=== PATIENT | male | born 1980 | race Two or more races ===

== ENCOUNTER 2016-09-03 11:24 | Observation (INO) | payer OTHER ==
[~2016-09-03 11:24] MED LIST: DEXAMETHASONE SOD PHOSPHATE INJ 4 MG/1 ML VIAL ONE; GLYCOPYRROLATE INJ 0.4 MG/2 ML VIAL ONE; LIDOCAINE 2% INJ-PF (20 MG/ML) 10 ML AMPUL ONE; NEOSTIGMINE METHYLSULFATE 10 MG/10 ML VIAL ONE; ONDANSETRON HCL INJ/PF 4 MG/2 ML SDV ONE; ROCURONIUM BROMIDE INJ 50 MG/5 ML VIAL IV ONE; SUCCINYLCHOLINE CHLORIDE INJ 200 MG/10 ML VIAL ONE
[2016-09-03] MEDS ORDERED: LIDOCAINE 2% VISCOUS SOLN 20 ML UDCUP PO ONE (11:46)
[2016-09-03] MEDS ORDERED: MAG HYDROX/AL HYDROX/SIMETH SUSP 30 ML UDCUP PO ONE (11:46)
--- NOTE | 2016-09-03 11:48 | ER Document Report ---
ED Medical Screen (RME) - General Chief Complaint: Epigastric Pain Stated Complaint: ACID REFLUX PAIN Time Seen by Provider: 09/03/16 11:41 Mode of Arrival: Ambulatory Information source: Patient Notes: This 36-year-old male patient with chronic GERD reports eating sausage pizza yesterday evening. He later had severe epigastric discomfort about 3 AM. He took Pepto-Bismol which usually works, also took Prilosec, and Gaviscon. He has had no relief from his discomfort. Brief exam shows very tender in epigastrium and some right upper quadrant tenderness. We will check LFTs and pancreatic enzymes, give a GI cocktail, and get a gallbladder ultrasound. I have greeted and performed a rapid initial assessment of this patient. A comprehensive ED assessment and evaluation of the patient, analysis of test results and completion of the medical decision making process will be conducted by additional ED providers. TRAVEL OUTSIDE OF THE [place] IN LAST 30 DAYS: No - Related Data Allergies/Adverse Reactions: No Known Allergies Allergy (Verified 09/03/16 11:32) Past Medical History - Social History Chew tobacco use (# tins/day): No Frequency of alcohol use: Rare Drug Abuse: None Renal/ Medical History: Denies: Hx Peritoneal Dialysis GI Medical History: Reports: Hx Gastroesophageal Reflux Disease Surgical Hx: Negative - Immunizations Hx Diphtheria, Pertussis, Tetanus Vaccination: Yes Physical Exam - Vital signs Vitals: Temp Pulse Resp BP Pulse Ox 98.2 F 63 18 184/104 H 98 09/03/16 11:25 09/03/16 11:25 09/03/16 11:25 09/03/16 11:25 09/03/16 11:25 Course - Vital Signs Vital signs: Temp Pulse Resp BP Pulse Ox 98.2 F 63 18 184/104 H 98 09/03/16 11:25 09/03/16 11:25 09/03/16 11:25 09/03/16 11:25 09/03/16 11:25
[2016-09-03] MEDS ORDERED: ONDANSETRON HCL INJ/PF 4 MG/2 ML SDV IV ONE (12:14)
[2016-09-03] MEDS ORDERED: MORPHINE SULFATE 10 MG/ML INJ IV ONE (12:14)
[2016-09-03] MEDS ORDERED: NORMAL SALINE 1000 ML 1,000 ML IV ONE ×2 (12:14→14:37)
[2016-09-03] MEDS ORDERED: FAMOTIDINE INJ/PF 20 MG/2 ML SDV IV ONE (12:15)
[2016-09-03 12:50] LABS: ABSOLUTE LYMPHOCYTES (AUTO) 1.5 10^3/uL (0.5-4.7); ABSOLUTE MONOCYTES (AUTO) 0.4 10^3/uL (0.1-1.4); BASOPHILS % (AUTO) 0.4 % (0-2); EOSINOPHILS % (AUTO) 0.3 % (0-6); HEMATOCRIT 45.6 % (37.9-51.0); HEMOGLOBIN 14.2 g/dL (13.5-17.0); LYMPHOCYTES % (AUTO) 17.2 % (13-45); MEAN CORPUSCULAR HEMOGLOBIN 22.7 pg (27.0-33.4); MEAN CORPUSCULAR VOLUME 73 fl (80-97); MONOCYTES % (AUTO) 4.1 % (3-13); RED BLOOD COUNT 6.23 10^6/uL (4.35-5.55); RED CELL DISTRIBUTION WIDTH 14.1 % (11.5-14.0)
[2016-09-03 13:01] LABS: ALANINE AMINOTRANSFERASE 78 U/L (21-72); ALBUMIN 4.6 g/dL (3.5-5.0); ALKALINE PHOSPHATASE 75 U/L (38-126); ANION GAP 19 (5-19); ASPARTATE AMINO TRANSFERASE 44 U/L (17-59); BILIRUBIN,DIRECT 0.3 mg/dL (0.0-0.4); BILIRUBIN,TOTAL 0.4 mg/dL (0.2-1.3); BLOOD UREA NITROGEN 10 mg/dL (7-20); CARBON DIOXIDE 23 mmol/L (22-30); CHLORIDE 100 mmol/L (98-107); CREATININE RESULT 0.76 mg/dL (0.52-1.25); GLUCOSE 141 mg/dL (75-110); LIPASE 61.1 U/L (23-300); SODIUM 142.4 mmol/L (137-145); TOTAL PROTEIN 7.9 g/dL (6.3-8.2)
--- NOTE | 2016-09-03 13:58 | RADIOLOGY REPORT (SQ) ---
EXAM DESCRIPTION: U/S ABDOMEN LIMITED W/O DOP COMPLETED DATE/TIME: 09/03/2016 1:37 pm REASON FOR STUDY: RUQ and epigastric pain COMPARISON: None. TECHNIQUE: Dynamic and static grayscale images acquired of the right upper quadrant and recorded on PACS. Additional selected color Doppler and spectral images recorded. LIMITATIONS: Study limited due to acoustical interference from fat or from air in the bowel. FINDINGS: PANCREAS: Parts or all of the pancreas poorly seen secondary to acoustical interference fr om fat or from air in the bowel. LIVER: Echotexture is coarse with increased echogenicity consistent with fatty infiltration. No mass es. LIVER VASCULATURE: Normal directional flow of the main portal vein and hepatic veins. GALLBLADDER: Multiple gallstones. Mild gallbladder wall thickening. Small amount of pericholecystic fluid. ULTRASOUND-DETECTED SONI'S SIGN: Negative. INTRAHEPATIC DUCTS AND COMMON DUCT: No significant intrahepatic biliary dilation. Unable to visualiz e the extrahepatic bile ducts due to overlying bowel gas. INFERIOR VENA CAVA: Normal flow. AORTA: No aneurysm. RIGHT KIDNEY: Normal size. Normal echogenicity. No solid or suspicious masses. No hydronephros is. No calcifications. PERITONEAL CAVITY AND RIGHT PLEURAL SPACE: No ascites or effusions. OTHER: No other significant finding. IMPRESSION: 1. MULTIPLE GALLSTONES. MILD GALLBLADDER WALL THICKENING WITH SMALL AMOUNT OF PERICHOLECYSTIC FLUID. UNABLE TO VISUALIZE THE EXTRAHEPATIC BILE DUCTS BUT NO GROSS EVIDENCE OF BILIARY DILATION. 2. FATTY INFILTRATION OF THE LIVER. TECHNICAL DOCUMENTATION: JOB ID: [id number] [employer]- All Rights Reserved
[2016-09-03] MEDS ORDERED: AMPICILLIN SOD/SULBACTAM 3 GM VIAL IV ONE (14:37)
--- NOTE | 2016-09-03 14:38 | ER Document Report ---
ED General - General Chief Complaint: Epigastric Pain Stated Complaint: ACID REFLUX PAIN Time Seen by Provider: 09/03/16 11:41 Mode of Arrival: Ambulatory TRAVEL OUTSIDE OF THE [place] IN LAST 30 DAYS: No - HPI Patient complains to provider of: History right upper quadrant pain Notes: Patient coming in for acid reflux epigastric pain or upper quadrant pain. Patient states pain started after eating pizza the night prior. Patient states last meal glucose this morning when eating breakfast. Patient has fever chills nausea vomiting. Patient denies any other medical past medical history denies any recent travel denies any recent antibiotics. - Related Data Allergies/Adverse Reactions: No Known Allergies Allergy (Verified 09/03/16 11:32) Past Medical History - General Information source: Patient - Social History Smoking Status: Never Smoker Chew tobacco use (# tins/day): No Frequency of alcohol use: Rare Drug Abuse: None Family History: Reviewed & Not Pertinent Patient has suicidal ideation: No Patient has homicidal ideation: No Renal/ Medical History: Denies: Hx Peritoneal Dialysis GI Medical History: Reports: Hx Gastroesophageal Reflux Disease Surgical Hx: Negative - Immunizations Hx Diphtheria, Pertussis, Tetanus Vaccination: Yes Review of Systems - Review of Systems Constitutional: No symptoms reported EENT: No symptoms reported Cardiovascular: No symptoms reported Respiratory: No symptoms reported Gastrointestinal: Abdominal pain Genitourinary: No symptoms reported Male Genitourinary: No symptoms reported Musculoskeletal: No symptoms reported Skin: No symptoms reported Hematologic/Lymphatic: No symptoms reported Neurological/Psychological: No symptoms reported -: Yes All other systems reviewed and negative Physical Exam - Vital signs Vitals: Temp Pulse Resp BP Pulse Ox 98.2 F 63 18 184/104 H 98 09/03/16 11:25 09/03/16 11:25 09/03/16 11:25 09/03/16 11:25 09/03/16 11:25 Interpretation: Normal - General General appearance: Appears well, Alert - HEENT Head: Normocephalic, Atraumatic Eyes: Normal Pupils: PERRL - Respiratory Respiratory status: No respiratory distress Chest status: Nontender Breath sounds: Normal Chest palpation: Normal - Cardiovascular Rhythm: Regular Heart sounds: Normal auscultation Murmur: No - Abdominal Inspection: Normal Distension: No distension Bowel sounds: Normal Tenderness: Tender, Alvarado's sign, Guarding. No: McBurney's point, Rebound Organomegaly: No organomegaly - Back Back: Normal, Nontender - Extremities General upper extremity: Normal inspection, Nontender, Normal color, Normal ROM , Normal temperature General lower extremity: Normal inspection, Nontender, Normal color, Normal ROM , Normal temperature, Normal weight bearing. No: Brooks's sign - Neurological Neuro grossly intact: Yes Cognition: Normal Orientation: AAOx4 Thornton Coma Scale Eye Opening: Spontaneous Thornton Coma Scale Verbal: Oriented Josafat Coma Scale Motor: Obeys Commands Thornton Coma Scale Total: 15 Speech: Normal Motor strength normal: LUE, RUE, LLE, RLE Sensory: Normal - Psychological Associated symptoms: Normal affect, Normal mood - Skin Skin Temperature: Warm Skin Moisture: Dry Skin Color: Normal Course - Re-evaluation Re-evalutation: 09/03/16 16:27 Patient's ultrasound showed gallstones with pericholecystic fluid with gallbladder wall thickening more consistent with cholecystitis. Patient was remained n.p.o. 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
[2016-09-03] MEDS ORDERED: BUPIVACAINE HCL 0.25 % INJ/PF (2.5 MG/1 ML) 30 ML VIAL ONE (15:02)
[2016-09-03 15:07] LABS: APPEARANCE,URINE CLEAR; BILIRUBIN,URINE NEGATIVE (NEGATIVE); GLUCOSE, URINE NEGATIVE (NEGATIVE); KETONES,URINE NEGATIVE (NEGATIVE); LEUKOCYTE ESTERASE,URINE NEGATIVE (NEGATIVE); NITRITE,URINE NEGATIVE (NEGATIVE); PROTEIN,URINE NEGATIVE (NEGATIVE); UROBILINOGEN,URINE NEGATIVE mg/dL (<2.0)
[2016-09-03] MEDS ORDERED: FENTANYL CITRATE INJ/PF 100 MCG/2 ML AMPUL ONE ×2 (15:08)
[2016-09-03] MEDS ORDERED: HYDROMORPHONE HCL INJ/PF 2 MG/ML AMPULE ONE (15:08)
[2016-09-03] MEDS ORDERED: MIDAZOLAM 2 MG/2 ML INJ ONE (15:09)
[2016-09-03] MEDS ORDERED: ACETAMINOPHEN 100 ML IV ONE (15:09)
[2016-09-03] MEDS ORDERED: RINGERS SOLUTION,LACTATED 1,000 ML IV ONE (15:09)
[2016-09-03] MEDS ORDERED: PROPOFOL INJ 200 MG/20 ML VIAL IV ONE (15:09)
--- NOTE | 2016-09-03 15:17 | PDOC H&P ---
History of Present Illness Admission Date/PCP: 09/03/16 14:44 History of Present Illness: KENIA LIEBERMAN is a 36 year old male presents emergency department complaining of acute onset abdominal pain after eating last night. This is associated with anorexia and nausea but no vomiting. Last bowel movement was earlier this morning, normal. Patient seen in the emergency department where he was found to have right upper quadrant tenderness. Gallbladder ultrasonography revealed cholelithiasis, thickened gallbladder wall, pericholecystic fluid. Patient was advised to see surgery, who recommended admission and definitive surgical management According patient for years she has had pains similar to the presenting complaint today, but less intense, and attributed this to reflux disease. Is taken proton pump inhibitors in the past as well as H2 blockers. He denies history of trauma, previous gastrointestinal problems, family history of gallbladder disease. Past Medical History Cardiac Medical History: Reports: None Pulmonary Medical History: Reports: None EENT Medical History: Reports: None Neurological Medical History: Reports: None Endocrine Medical History: Reports: None Renal/ Medical History: Reports: None Malignancy Medical History: Reports: None GI Medical History: Reports: Gastroesophageal Reflux Disease Skin Medical History: Reports: None Traumatic Medical History: Reports: None Hematology: Reports: None Past Surgical History Past Surgical History: Reports: None Social History Smoking Status: Never Smoker Frequency of Alcohol Use: None - Advance Directive Resuscitation Status: Full Code Family History Parental Family History Reviewed: Yes Children Family History Reviewed: Yes Sibling(s) Family History Reviewed.: Yes Medication/Allergy Allergies/Adverse Reactions: No Known Allergies Allergy (Verified 09/03/16 11:32) Review of Systems Constitutional: ABSENT: chills, fever(s), headache(s), weight gain, weight loss Eyes: ABSENT: visual disturbances Ears: ABSENT: hearing changes Respiratory: ABSENT: cough, hemoptysis Gastrointestinal: PRESENT: as per HPI Genitourinary: ABSENT: dysuria, hematuria Musculoskeletal: ABSENT: joint swelling Integumentary: ABSENT: rash, wounds Neurological: ABSENT: abnormal gait, abnormal speech, confusion, dizziness, focal weakness, syncope Hematologic/Lymphatic: ABSENT: easy bleeding, easy bruising Physical Exam Vital Signs: Temp Pulse Resp BP Pulse Ox 98.6 F 88 18 150/99 H 98 09/03/16 14:48 09/03/16 14:48 09/03/16 14:48 09/03/16 14:48 09/03/16 14:48 General appearance: PRESENT: no acute distress Head exam: PRESENT: normocephalic Eye exam: PRESENT: EOMI Ear exam: PRESENT: TM's normal bilaterally Neck exam: PRESENT: full ROM Respiratory exam: PRESENT: chest wall tenderness, clear to auscultation mark Cardiovascular exam: PRESENT: RRR Pulses: PRESENT: normal radial pulses, normal femoral pulses, normal dorsalis pedis pul GI/Abdominal exam: PRESENT: other - No palpable mass appreciated tender right upper quadrant with minimal guarding. No rigidity. Extremities exam: PRESENT: full ROM Musculoskeletal exam: PRESENT: full ROM Neurological exam: PRESENT: alert, awake, oriented to person, oriented to place Psychiatric exam: PRESENT: appropriate affect Skin exam: PRESENT: dry Results Impressions: Abdomen Ultrasound 09/03/16 11:46 IMPRESSION: 1. MULTIPLE GALLSTONES. MILD GALLBLADDER WALL THICKENING WITH SMALL AMOUNT OF PERICHOLECYSTIC FLUID. UNABLE TO VISUALIZE THE EXTRAHEPATIC BILE DUCTS BUT NO GROSS EVIDENCE OF BILIARY DILATION. 2. FATTY INFILTRATION OF THE LIVER. Assessment & Plan - Diagnosis (1) Acute cholecystitis Is this a current diagnosis for this admission?: YesPlan: 1. With cholelithiasis; no evidence of acute biliary duct obstruction. 2. Recommend admission to surgical service, and interval laparoscopic, possible open cholecystectomy. Given his male gender, and acute presentation, he has increased risk perhaps 50% conversion to an open procedure. The risks benefits and alternatives to the planned procedure including bleeding , infection, bile duct injury, need for drain, need for additional surgery were all discussed with the patient. I believe he understands and agrees to proceed. - Time Time Spent: 50 to 70 Minutes Critical Time spent with patient: 15-24 minutes Medications reviewed and adjusted accordingly: Yes Anticipated discharge: Home - Inpatient Certification Based on my medical assessment, after consideration of the patient's comorbidities, presenting symptoms, or acuity I expect that the services needed warrant INPATIENT care.: Yes I certify that my determination is in accordance with my understanding of Medicare's requirements for reasonable and necessary INPATIENT services [42 CFR 412.3e].: Yes Medical Necessity: Need For IV Fluids, Need for Pain Control, Need for IV Antibiotics, Need for Surgery
[2016-09-03 15:47] LABS: PROTHROMBIN TIME 14.3 SEC (11.4-15.4)
[2016-09-03 15:48] LABS: PARTIAL THROMBOPLASTIN TIME 27.7 SEC (23.5-35.8)
[2016-09-03] MEDS ORDERED: BUPIVACAINE HCL 0.25 % INJ/PF (2.5 MG/1 ML) 30 ML VIAL INJ ONE ×4 (16:29→17:16)
[2016-09-03] MEDS ORDERED: MEPERIDINE HCL/PF INJ 25 MG/1 ML DISP.SYRIN IV PRN (17:38)
[2016-09-03] MEDS ORDERED: MORPHINE SULFATE 10 MG/ML INJ IV PRN ×2 (17:38→19:01)
[2016-09-03] MEDS ORDERED: PROMETHAZINE HCL INJ 25 MG/1 ML VIAL IV PRN (17:38)
[2016-09-03] MEDS ORDERED: DIPHENHYDRAMINE HCL 50 MG/ML VIAL IV PRN (17:38)
[2016-09-03] MEDS ORDERED: FENTANYL CITRATE INJ/PF 100 MCG/2 ML AMPUL IV PRN ×3 (17:38)
[2016-09-03] MEDS ORDERED: DOCUSATE SODIUM 100 MG CAPSULE PO PRN (19:01)
[2016-09-03] MEDS ORDERED: ONDANSETRON HCL INJ/PF 4 MG/2 ML SDV IV PRN (19:01)
[2016-09-03] MEDS ORDERED: OXYCODONE-ACETAMINOPHEN 5-325 MG TABLET PO PRN (19:01)
--- NOTE | 2016-09-03 19:14 | Operative Report ---
Operative Report DATE OF SURGERY: 09/03/16 PREOPERATIVE DIAGNOSIS: Acute cholecystitis with cholelithiasis POSTOPERATIVE DIAGNOSIS: Same OPERATION: 1. Laparoscopic cholecystectomy. 2. Extremely difficult modifier due to acute inflammation, adhesions and additional time to perform operation SURGEON: DEBORAH MCKEON ANESTHESIA: GA TISSUE REMOVED OR ALTERED: one GB with stones COMPLICATIONS: none ESTIMATED BLOOD LOSS: scant INTRAOPERATIVE FINDINGS: see note PROCEDURE: Patient was taken from the preop holding area the main operating where general anesthesia was induced. Arms were abducted, abdomen exposed, and prepped and draped in sterile fashion. Surgical plan and surgical timeout conducted. Instrumentation was set up for laparoscopic cholecystectomy. Because the patient had a small fullness at the umbilicus, we approached the peritoneal cavity through a right upper quadrant stab wound made with a knife, Veress needle inserted into the peritoneal cavity and pneumoperitoneum was established. The Veress needle was removed and a 5 mm ports inserted a 5 mm Scope was inserted. From this view we inserted a subxiphoid, second right subcostal and supraumbilical ports all 5 mm all under direct visualization. The fullness at the umbilicus detected preoperatively was likely due to retroperitoneal fat herniating through the umbilicus. It was small and we elected to leave it as is. Intraperitoneal findings were significant for no visceral injury, and no vascular injury. The gallbladder was markedly distended, acutely inflamed and aspirated of approximately 60 cc of bile with the laparoscopic trocar. Unfortunately this did not decompress the gallbladder sufficiently to create flexibility in the tissues to provide suitable visibility in the dissection from the neck of the gallbladder. Therefore this approach was aborted, we repositioned our graspers, and took the gallbladder down from the fundus. We used primarily hook electrocautery dissection. This was an extremely tedious process because the gallbladder was Biobond is to the inferior surface of the liver. This took approximately 1 hour solid. The reason again being the presence of acute inflammation edema and adhesions. We proceeded methodically with excellent visualization. Bleeding was intermittent coming from the liver edges. This was handled with electrocautery. This also required a lot of manipulation of the gallbladder laterally medially cephalad and caudad while maintaining excellent visualization of our operative field and tissue plane. Eventually we had the gallbladder down towards the neck free from the liver surface. The cystic artery was likely a branch configuration, with both components clipped twice proximally once distally and divided as encountered. We worked in a circumferential fashion taking the fatty tissue from around the neck of the gallbladder until the gallbladder was elegantly dissected all the way to its taper-point of the cystic duct. We placed an Endoloop around the gallbladder side of the cystic duct and clipped the cystic duct proximally with 2 conventional length 5 mm clip distributor publications clips. Photos were taken and the gallbladder was amputated from cystic duct. The gallbladder was placed in Endobag by the patient is a supraumbilical port site after stretching the fascia minimally. Return to peritoneal cavity checked for bleeding and there was some from the liver edge due to superficial surface trauma from the graspers and fan retractor. The bleeding was handled sufficiently with pieces of Surgicel. We irrigated the peritoneal cavity out several times and there was no evidence of mechanical bleeding or bile leak. Our clips were in good position where satisfied we were safe to close Sponge and counts were correct. All ports removed under direct visualization pneumoperitoneum evacuated and wounds closed with 0 Vicryl 3-0 Vicryl benzoin Steri-Strips Again the justification for the extremely difficult modifier was the prolonged time, effort energy tedious focus and concentration required to remove the gallbladder from the liver bed due to acute inflammation adhesions and edema under excellent assistance and excellent visualization by the operating team.
[2016-09-04 07:51] VITALS: BP 137/70
--- NOTE | 2016-09-04 09:28 | DISCHARGE SUMMARY E ---
Discharge Summary NAME: KENIA LIEBERMAN : 1980 AGE: 36Y ADMITTED: 09/03/2016 DISCHARGED: 09/04/2016 ADMITTING DIAGNOSIS: Cholecystitis. DISCHARGE DIAGNOSIS: Cholecystitis. OPERATIVE PROCEDURE: Laparoscopic cholecystectomy done by Dr. Alarcon. DISCHARGE MEDICATIONS: 1. Hydrocodone for the pain. 2. Colace for a stool softener. FOLLOWUP PLAN: Outpatient in 2 weeks. HOSPITAL COURSE: Patient presented to the emergency room with acute abdominal pain, acute cholecystitis. He underwent a laparoscopic cholecystectomy yesterday, uneventful, admitted for postop management. This morning he is feeling comfortable, afebrile, tolerating diet. No nausea. Abdominal examination is soft and nontender. Trocar incisions are clean and healing well. He is ready to be able to go home. Followup plan in the Surgical Clinic in 2 weeks. DICTATING PHYSICIAN: LOREN PINEDA M.D. [id number] PHY#: [id number] ID: [id number] JOB#: [id number] ACCT: [id number] cc:DEBORAH ALARCON M.D., SANKAR M.D. >
== END 2016-09-04 09:37 | disposition home or self-care (01) ==
LOC: ER 11:24 → INTOOBSV 14:44 → EH 14:44 → 4S 20:22
PROVIDERS: ADMIT Surgery; ATTEND Surgery
PROC: 0FN04ZZ Release Liver, Percutaneous Endoscopic Approach (ICD-10-PCS; 2016-09-03)
PROC: 0FT44ZZ Resection of Gallbladder, Percutaneous Endoscopic Approach (ICD-10-PCS; principal; 2016-09-03 16:00)
DX: K80.10 Calculus of gallbladder with chronic cholecystitis without obstruction (principal); K66.0 Peritoneal adhesions (postprocedural) (postinfection); K91.71 Accidental puncture and laceration of a digestive system organ or structure during a digestive system procedure; K21.9 Gastro-esophageal reflux disease without esophagitis; K76.0 Fatty (change of) liver, not elsewhere classified; Z83.79 Family history of other diseases of the digestive system
CPT/HCPCS: 47562; 49999; 99285; 96361; 96375; 96365; 36415; 83690; 85025; 85610; 85730; 80053; 81001; 88304 ×2; 76705; G0378 ×3; J2250; J3490 ×3; J1100; J3010; J0295; J2270; J1170; J0330; J2405; J7030; J2704; S0028; J0131; 790

== ENCOUNTER 2016-09-07 18:11 | Emergency (ER) | payer OTHER ==
--- NOTE | 2016-09-07 21:10 | ER Document Report ---
ED Medical Screen (RME) - General Chief Complaint: Chest Pain Stated Complaint: CHEST PAIN Time Seen by Provider: 09/07/16 21:07 Notes: Patient is a 36-year-old male presents emergency department complaining of chest pain with sudden onset earlier this afternoon. Patient describes it as a pressure in the center of his chest substernal with radiation into his belly with associated nausea. Patient states that the pressure is more noticeable with deep inhalation. Patient is postop day 4 from a laparoscopic cholecystectomy performed by Dr. Alarcon on September 03. Patient denies any fevers , chills, shortness of breath, dyspnea on exertion. Otherwise healthy male. I have greeted and performed a rapid initial assessment of this patient. A comprehensive ED assessment and evaluation of the patient, analysis of test results and completion of the medical decision making process will be conducted by additional ED providers. TRAVEL OUTSIDE OF THE [place] IN LAST 30 DAYS: No - Related Data Allergies/Adverse Reactions: No Known Allergies Allergy (Verified 09/07/16 18:35) Past Medical History Renal/ Medical History: Denies: Hx Peritoneal Dialysis GI Medical History: Reports: Hx Gastroesophageal Reflux Disease - Immunizations Hx Diphtheria, Pertussis, Tetanus Vaccination: Yes Physical Exam - Vital signs Vitals: Temp Pulse Resp BP Pulse Ox 98.1 F 71 16 167/116 H 99 09/07/16 18:35 09/07/16 18:35 09/07/16 18:35 09/07/16 18:35 09/07/16 18:35 - Notes Notes: PHYSICAL EXAM GENERAL: Alert, interacts well. LUNGS: Clear to auscultation bilaterally, no wheezes, rales, or rhonchi. No respiratory distress. HEART: Regular rate and rhythm. No murmurs, gallops, or rubs. EXTREMITIES: Moves all 4 extremities spontaneously. No edema, radial and dorsalis pedis pulses 2/4 bilaterally. No cyanosis. NEUROLOGICAL: Alert and oriented x4. Normal speech. PSYCH: Normal affect, normal mood. SKIN: Warm, dry, normal turgor. Incisions CDI, no evidence of wound dehiscence or infection Course - Vital Signs Vital signs: Temp Pulse Resp BP Pulse Ox 98.1 F 71 16 167/116 H 99 09/07/16 18:35 09/07/16 18:35 09/07/16 18:35 09/07/16 18:35 09/07/16 18:35
[2016-09-07 21:40] LABS: ABSOLUTE BASOPHILS # (AUTO) 0.1 10^3/uL (0.0-0.2); ABSOLUTE EOSINOPHILS # (AUTO) 0.1 10^3/uL (0.0-0.6); ABSOLUTE LYMPHOCYTES (AUTO) 2.9 10^3/uL (0.5-4.7); ABSOLUTE MONOCYTES (AUTO) 0.5 10^3/uL (0.1-1.4); ABSOLUTE NEUT (AUTO) 4.1 10^3/uL (1.7-8.2); BASOPHILS % (AUTO) 0.7 % (0-2); EOSINOPHILS % (AUTO) 1.2 % (0-6); HEMATOCRIT 44.7 % (37.9-51.0); HEMOGLOBIN 14.1 g/dL (13.5-17.0); HGB HCT DIFFERENCE -2.4; LYMPHOCYTES % (AUTO) 38.3 % (13-45); MEAN CORPUSCULAR HEMOGLOBIN 22.9 pg (27.0-33.4); MEAN CORPUSCULAR HGB CONC 31.5 g/dL (32.0-36.0); MEAN CORPUSCULAR VOLUME 73 fl (80-97); MONOCYTES % (AUTO) 6.2 % (3-13); RED BLOOD COUNT 6.15 10^6/uL (4.35-5.55); RED CELL DISTRIBUTION WIDTH 14.1 % (11.5-14.0); SEGMENTED NEUTROPHILS % (AUTO) 53.6 % (42-78); WHITE BLOOD COUNT 7.6 10^3/uL (4.0-10.5)
--- NOTE | 2016-09-07 21:48 | RADIOLOGY REPORT (SQ) ---
EXAM DESCRIPTION: CHEST PA/LAT COMPLETED DATE/TIME: 09/07/2016 9:33 pm REASON FOR STUDY: chest pain COMPARISON: None. EXAM PARAMETERS: NUMBER OF VIEWS: two views TECHNIQUE: Digital Frontal and Lateral radiographic views of the chest acquired. RADIATION DOSE: NA LIMITATIONS: none FINDINGS: LUNGS AND PLEURA: No opacities, masses or pneumothorax. No pleural effusion. MEDIASTINUM AND HILAR STRUCTURES: No masses or contour abnormalities. HEART AND VASCULAR STRUCTURES: Heart normal size. No evidence for failure. BONES: No acute findings. HARDWARE: None in the chest. OTHER: No other significant finding. IMPRESSION: NO SIGNIFICANT RADIOGRAPHIC FINDING IN THE CHEST. TECHNICAL DOCUMENTATION: JOB ID: [id number] [employer]- All Rights Reserved
[2016-09-07 21:54] LABS: ANION GAP 16 (5-19); BLOOD UREA NITROGEN 11 mg/dL (7-20); CALCIUM 10.4 mg/dL (8.4-10.2); CARBON DIOXIDE 30 mmol/L (22-30); CHLORIDE 98 mmol/L (98-107); CREATININE RESULT 0.84 mg/dL (0.52-1.25); GLUCOSE 92 mg/dL (75-110); PARTIAL THROMBOPLASTIN TIME 28.6 SEC (23.5-35.8); PROTHROMBIN TIME 13.7 SEC (11.4-15.4); SODIUM 144.3 mmol/L (137-145)
[2016-09-07 21:57] LABS: D-DIMER 1.68 ug/mL (0.00-0.50)
[2016-09-07] MEDS ORDERED: FAMOTIDINE 20 MG TABLET PO ONE (23:42)
[2016-09-07] MEDS ORDERED: MAG HYDROX/AL HYDROX/SIMETH SUSP 30 ML UDCUP PO ONE (23:42)
--- NOTE | 2016-09-07 23:48 | ER Document Report ---
ED General - General Chief Complaint: Chest Pain Stated Complaint: CHEST PAIN Time Seen by Provider: 09/07/16 21:07 Mode of Arrival: Ambulatory Information source: Patient TRAVEL OUTSIDE OF THE [place] IN LAST 30 DAYS: No - HPI Notes: Patient is a 36-year-old male status post cholecystectomy on 09/03/16 presents emergency department with report that he has had intermittent episodes of upper epigastric to lower chest wall discomfort that have gone on for several years, usually responds to Pepto-Bismol. The patient was seen recently found to have gallstones and had his gallbladder removed, but states he has had the same discomfort today. Patient reports the discomfort was at rest came on about 10 AM in the morning and he felt somewhat nauseated with he but did not vomit. He denies any actual abdominal pain with it but does have belching associated. He reports no cough or congestion or difficulty breathing. He denies any fever or chills. The patient states when he has a pain that seems to be worse with taking a deep breath, but on my questioning he states now the pain seems to be nonpleuritic and almost resolved. No significant back pain. Family history no cardiac disease. social history patient is a non-smoker Patient does report previous history of reflux disease in the past, and he does admit to taking occasional anti-inflammatory medications. - Related Data Allergies/Adverse Reactions: No Known Allergies Allergy (Verified 09/07/16 18:35) Past Medical History - General Information source: Patient - Social History Smoking Status: Never Smoker Chew tobacco use (# tins/day): No Frequency of alcohol use: None Drug Abuse: None Lives with: Family Family History: denies: CAD Patient has suicidal ideation: No Patient has homicidal ideation: No - Past Medical History Cardiac Medical History: Reports: None Denies: Hx Hypercholesterolemia Renal/ Medical History: Denies: Hx Peritoneal Dialysis GI Medical History: Reports: Hx Gastroesophageal Reflux Disease Past Surgical History: Reports: Hx Cholecystectomy - 09/03/2016 - Immunizations Hx Diphtheria, Pertussis, Tetanus Vaccination: Yes Review of Systems - Review of Systems Notes: REVIEW OF SYSTEMS: CONSTITUTIONAL : Denies fever, chills, or sweats. Denies recent illness. EENT: Denies eye, ear, throat, or mouth pain or symptoms. Denies nasal or sinus congestion or discharge. Denies throat, tongue, or mouth swelling or difficulty swallowing. CARDIOVASCULAR: Denies palpitations or racing or irregular heart beat. Denies ankle edema Or leg pain or swelling. RESPIRATORY: Denies cough, cold, or chest congestion. Denies shortness of breath, difficulty breathing, or wheezing. GASTROINTESTINAL: Denies abdominal pain or distention. Denies vomiting, or diarrhea. Denies blood in vomitus, stools, or per rectum. Denies black, tarry stools. Denies constipation. GENITOURINARY: Denies difficulty urinating, painful urination, burning, frequency, blood in urine, or discharge. MUSCULOSKELETAL: Denies back or neck pain or stiffness. Denies joint pain or swelling. SKIN: Denies rash, lesions or sores. HEMATOLOGIC : Denies easy bruising or bleeding. LYMPHATIC: Denies swollen, enlarged glands. NEUROLOGICAL: Denies confusion or altered mental status. Denies passing out or loss of consciousness. Denies dizziness or lightheadedness. Denies headache. Denies weakness or paralysis or loss of use of either side. Denies problems with gait or speech. Denies sensory loss, numbness, or tingling. Denies seizures. PSYCHIATRIC: Denies anxiety or stress. Denies depression, suicidal ideation, or homicidal ideation. ALL OTHER SYSTEMS REVIEWED AND NEGATIVE. Dictation was performed using [employer] voice recognition software Physical Exam - Vital signs Vitals: Temp Pulse Resp BP Pulse Ox 98.1 F 71 16 167/116 H 99 09/07/16 18:35 09/07/16 18:35 09/07/16 18:35 09/07/16 18:35 09/07/16 18:35 - Notes Notes: PHYSICAL EXAMINATION: GENERAL: Well-appearing, well-nourished and in no acute distress. HEAD: Atraumatic, normocephalic. EYES: Pupils equal round and reactive to light, extraocular movements intact, sclera anicteric, conjunctiva are normal. ENT: Nares patent, oropharynx clear without exudates. Moist mucous membranes. NECK: Normal range of motion, supple without lymphadenopathy LUNGS: Breath sounds clear to auscultation bilaterally and equal. No wheezes rales or rhonchi. HEART: Regular rate and rhythm without murmurs. there is some pain on palpation to the anterior Chest wall region left greater than right. No crepitance or bony deformity or erythema. Patient currently states his pain is resolved except for with palpation. ABDOMEN: Soft, nondistended abdomen. No guarding, no rebound. No masses appreciated. Mildly tender to the midepigastric region. Surgical scars appear well-healed. Musculoskeletal: Normal range of motion, no pitting or edema. No cyanosis. NEUROLOGICAL: Cranial nerves grossly intact. Normal speech, normal gait. Normal sensory, motor exams PSYCH: Normal mood, normal affect. SKIN: Warm, Dry, normal turgor, no rashes or lesions noted. Course - Re-evaluation Re-evalutation: 09/08/16 02:47 Patient given Pepcid, Maalox, and Zofran with relief of nausea and his pain. Repeat exam showed no evidence for chest or abdominal pain. The patient was ambulatory without complaint and felt stable for discharge. Initial and repeat troponin were negative on the patient. Repeat EKG as interpreted by me showed normal sinus rhythm rate of 74 again there is no gross evidence for acute OH or ischemia there were nonspecific ST segment changes. There was no change from previous EKG reviewed on the patient. Patient's blood pressure was somewhat elevated averaging systolics 150s-160s with diastolics 90s to low 100s. Patient was given lisinopril by mouth. He was advised to follow-up with a local practitioner related to his blood pressure and continued discomfort. No obvious evidence for gross hepatitis or pancreatitis or GI bleed or acute OH or ischemia. No evidence for pneumonia or congestive heart failure. Given that this similar pain at rest with associated belching and relieved by Pepto- Bismol was occurring prior to his surgery, there is no suggestion for pulmonary embolus, and a mild d-dimer elevation is stopped secondary to recent surgery. Patient denies pleuritic component on my questioning and had a resolution of his discomfort with GI medications. 09/08/16 02:49 - Vital Signs Vital signs: Temp Pulse Resp BP Pulse Ox 98.1 F 71 16 167/116 H 99 09/07/16 18:35 09/07/16 18:35 09/07/16 18:35 09/07/16 18:35 09/07/16 18:35 - Laboratory Result Diagrams: 09/07/16 21:23 09/07/16 21:23 Laboratory results interpreted by me: 09/07/16 09/07/16 09/07/16 21:23 21:23 21:23 RBC 6.15 H MCV 73 L MCH 22.9 L MCHC 31.5 L RDW 14.1 H D-Dimer 1.68 H Calcium 10.4 H ALT Total Protein 09/07/16 21:23 RBC MCV MCH MCHC RDW D-Dimer Calcium ALT 109 H Total Protein 8.3 H - EKG Interpretation by Me EKG shows normal: Sinus rhythm Additional EKG results interpreted by me: 09/07/16 23:48 EKG as interpreted by me showed normal sinus rhythm heart rate of 67. There are nonspecific ST segment findings. There is no gross evidence for acute OH or ischemia noted. There is no old EKG available for comparison. 09/08/16 02:49 Discharge - Discharge Clinical Impression: Hypertension Qualifiers: Hypertension type: essential hypertension Qualified Code(s): I10 - Essential ( primary) hypertension Chest pain Qualifiers: Chest pain type: unspecified Qualified Code(s): R07.9 - Chest pain, unspecified GERD (gastroesophageal reflux disease) Qualifiers: Esophagitis presence: with esophagitis Qualified Code(s): K21.0 - Gastro- esophageal reflux disease with esophagitis Condition: Stable Disposition: HOME, SELF-CARE Instructions: Chest Pain of Unclear Cause ([facility]), Reflux Disease (GERD) ([facility]), Prilosec (Acid Pump Inhibitor) ([facility]), High Blood Pressure ([facility]) Additional Instructions: Check and record your blood pressure regularly. [place] diet. Avoid anti-inflammatory medications such as Motrin, ibuprofen, naproxen. You may need an upper endoscopy if the pain continues. At the [facility] within 2 weeks. Prescriptions: Ondansetron [Zofran Odt 4 mg Tablet] 1 tab PO Q8HP PRN #10 tab.rapdis PRN Reason: For Nausea/Vomiting Lisinopril [Prinivil 10 mg Tablet] 10 mg PO DAILY #60 tablet Omeprazole 20 mg PO DAILY #60 capsule.
[2016-09-08 01:38] LABS: ALANINE AMINOTRANSFERASE 109 U/L (21-72); ALBUMIN 4.5 g/dL (3.5-5.0); ALKALINE PHOSPHATASE 76 U/L (38-126); ASPARTATE AMINO TRANSFERASE 54 U/L (17-59); BILIRUBIN,DIRECT 0.4 mg/dL (0.0-0.4); BILIRUBIN,TOTAL 0.6 mg/dL (0.2-1.3); TOTAL PROTEIN 8.3 g/dL (6.3-8.2)
[2016-09-08] MEDS ORDERED: LISINOPRIL 10 MG TABLET PO ONE (02:42)
[2016-09-08] MEDS ORDERED: ONDANSETRON ODT 4 MG TAB (6 TAB/DSPK) PO PRN (02:43)
[2016-09-08 03:34] VITALS: BP 157/107
--- NOTE | 2016-09-08 08:49 | EKG REPORT ---
SEVERITY:- ABNORMAL ECG - SINUS RHYTHM NONSPECIFIC T ABNORMALITIES, INFERIOR LEADS : Confirmed by: Carole Sabillon 08-Sep-2016 08:48:15
--- NOTE | 2016-09-08 08:50 | EKG REPORT ---
SEVERITY:- BORDERLINE ECG - SINUS RHYTHM BORDERLINE T ABNORMALITIES, INFERIOR LEADS : Confirmed by: Carole Sabillon 08-Sep-2016 08:48:30
== END 2016-09-08 03:29 | disposition home or self-care (01) ==
LOC: ER 18:11
DX: I10 Essential (primary) hypertension (principal); R07.9 Chest pain, unspecified; K21.0 Gastro-esophageal reflux disease with esophagitis; R10.13 Epigastric pain; Z90.49 Acquired absence of other specified parts of digestive tract
CPT/HCPCS: 36415; 71020; 80048; 80076; 83690; 84484; 85025; 85379; 85610; 85730; 93005; 93010; 99285

== ENCOUNTER 2019-01-29 23:26 | Emergency (ER) | payer OTHER ==
[2019-01-29] MEDS ORDERED: LISINOPRIL 10 MG TABLET PO ONE (23:53)
--- NOTE | 2019-01-29 23:55 | ER Document Report ---
ED Medical Screen (RME) - General Chief Complaint: Blood Pressure Problem Stated Complaint: HIGH BLOOD PRESSURE/FOOT PAIN Time Seen by Provider: 01/29/19 23:53 Mode of Arrival: Ambulatory Information source: Patient Notes: 38-year-old male presents to ED for complaint of elevated blood pressure of 172/108 and numbness of his feet. He states he has a history of both. He states is just higher than it has been. He does have a history of high blood pressure reflux and PTSD. He was taking lisinopril Lexapro and something for his reflux they made him urinate more feel like a zombie so he quit taking his medications. He has not taken any medications in a while. Patient is alert oriented respirations regular and unlabored speaking in full sentences. I have given him 1 dose of his lisinopril that he took in 2017 he has not had any blood pressure medicine since. I have greeted and performed a rapid initial assessment of this patient. A comprehensive ED assessment and evaluation of the patient, analysis of test results and completion of medical decision making process will be conducted by an additional ED providers. TRAVEL OUTSIDE OF THE [place] IN LAST 30 DAYS: No - Related Data Allergies/Adverse Reactions: No Known Allergies Allergy (Verified 01/29/19 23:47) Past Medical History - Social History Frequency of alcohol use: None Drug Abuse: None - Past Medical History Cardiac Medical History: Denies: Hx Hypercholesterolemia Renal/ Medical History: Denies: Hx Peritoneal Dialysis GI Medical History: Reports: Hx Gastroesophageal Reflux Disease Past Surgical History: Reports: Hx Cholecystectomy - 09/03/2016 - Immunizations Hx Diphtheria, Pertussis, Tetanus Vaccination: Yes Physical Exam - Vital signs Vitals: Temp Pulse Resp BP Pulse Ox 97.5 F 73 18 161/110 H 98 01/29/19 23:43 01/29/19 23:43 01/29/19 23:43 01/29/19 23:43 01/29/19 23:43 Course - Vital Signs Vital signs: Temp Pulse Resp BP Pulse Ox 97.5 F 73 18 161/110 H 98 01/29/19 23:43 01/29/19 23:43 01/29/19 23:43 01/29/19 23:43 01/29/19 23:43
[2019-01-30 00:22] LABS: APPEARANCE,URINE CLEAR; BILIRUBIN,URINE NEGATIVE (NEGATIVE); COLOR,URINE YELLOW; GLUCOSE, URINE NEGATIVE (NEGATIVE); KETONES,URINE NEGATIVE (NEGATIVE); LEUKOCYTE ESTERASE,URINE NEGATIVE (NEGATIVE); NITRITE,URINE NEGATIVE (NEGATIVE); PROTEIN,URINE 30 mg/dL (NEGATIVE); UROBILINOGEN,URINE NEGATIVE mg/dL (<2.0)
[2019-01-30 00:25] LABS: ABSOLUTE BASOPHILS # (AUTO) 0.1 10^3/uL (0.0-0.2); ABSOLUTE EOSINOPHILS # (AUTO) 0.1 10^3/uL (0.0-0.6); ABSOLUTE LYMPHOCYTES (AUTO) 3.4 10^3/uL (0.5-4.7); ABSOLUTE MONOCYTES (AUTO) 0.5 10^3/uL (0.1-1.4); ABSOLUTE NEUT (AUTO) 4.5 10^3/uL (1.7-8.2); BASOPHILS % (AUTO) 1.3 % (0-2); EOSINOPHILS % (AUTO) 1.1 % (0-6); HEMATOCRIT 46.4 % (37.9-51.0); HEMOGLOBIN 14.7 g/dL (13.5-17.0); LYMPHOCYTES % (AUTO) 39.3 % (13-45); MEAN CORPUSCULAR HEMOGLOBIN 22.8 pg (27.0-33.4); MEAN CORPUSCULAR HGB CONC 31.6 g/dL (32.0-36.0); MEAN CORPUSCULAR VOLUME 72 fl (80-97); PLATELET COUNT 227 10^3/uL (150-450); RED BLOOD COUNT 6.43 10^6/uL (4.35-5.55); RED CELL DISTRIBUTION WIDTH 14.1 % (11.5-14.0); SEGMENTED NEUTROPHILS % (AUTO) 52.3 % (42-78); TOTAL CELLS COUNTED % (AUTO) 100 %; WHITE BLOOD COUNT 8.7 10^3/uL (4.0-10.5)
[2019-01-30 00:30] LABS: ALBUMIN 4.6 g/dL (3.5-5.0); ALKALINE PHOSPHATASE 66 U/L (38-126); ANION GAP 10 (5-19); ASPARTATE AMINO TRANSFERASE 61 U/L (17-59); BILIRUBIN,TOTAL 0.7 mg/dL (0.2-1.3); BLOOD UREA NITROGEN 11 mg/dL (7-20); CALCIUM 9.9 mg/dL (8.4-10.2); CARBON DIOXIDE 31 mmol/L (22-30); CHLORIDE 99 mmol/L (98-107); GLUCOSE 123 mg/dL (75-110); POTASSIUM 3.4 mmol/L (3.6-5.0); TOTAL PROTEIN 8.1 g/dL (6.3-8.2)
[2019-01-30 02:39] VITALS: BP 155/106
== END 2019-01-30 02:25 | disposition left against medical advice (07) ==
LOC: ER 23:26
DX: R03.0 Elevated blood-pressure reading, without diagnosis of hypertension (principal); Z90.49 Acquired absence of other specified parts of digestive tract
CPT/HCPCS: 36415; 80053; 81001; 85025

== ENCOUNTER 2019-02-23 21:42 | Emergency (ER) | payer OTHER ==
--- NOTE | 2019-02-23 22:08 | ER Document Report ---
ED Medical Screen (RME) - General Chief Complaint: Blood Pressure Problem Stated Complaint: HIGH BLOOD PRESSURE/DULL CHEST PAIN Time Seen by Provider: 02/23/19 22:03 Primary Care Provider: CLINTON ANDERSON [Primary Care Provider] - Follow up as needed Notes: Patient is a 38-year-old male with a history of hypertension who presents the emergency department with a chief complaint of chest pressure. Patient reports he developed chest pressure to the left side today. Patient reports every time he gets this type of discomfort he knows that his blood pressure is elevated. Patient reports back in October 2017 he was on 3 blood pressure medications. He states they "messed him all up," [facility]. Patient reports he had a similar episode back in October in which she did make a [facility]. Patient reports that this appointment is at the end of February. Patient reports he has not been on medication since 2018 for his blood pressure. Patient denies headache. TRAVEL OUTSIDE OF THE [place] IN LAST 30 DAYS: No - Related Data Allergies/Adverse Reactions: No Known Allergies Allergy (Verified 01/29/19 23:47) Past Medical History - Past Medical History Cardiac Medical History: Denies: Hx Hypercholesterolemia Renal/ Medical History: Denies: Hx Peritoneal Dialysis GI Medical History: Reports: Hx Gastroesophageal Reflux Disease Past Surgical History: Reports: Hx Cholecystectomy - 09/03/2016 - Immunizations Hx Diphtheria, Pertussis, Tetanus Vaccination: Yes Physical Exam - Vital signs Vitals: Temp Pulse Resp BP Pulse Ox 97.7 F 77 20 180/119 H 99 02/23/19 22:03 02/23/19 22:03 02/23/19 22:03 02/23/19 22:03 02/23/19 22:03 Course - Re-evaluation Re-evalutation: 02/23/19 22:08 I have greeted and performed a rapid initial assessment of this patient. A com prehensive ED assessment and evaluation of the patient, analysis of test results and completion of the medical decision making process will be conducted by additional ED providers. - Vital Signs Vital signs: Temp Pulse Resp BP Pulse Ox 97.7 F 77 20 180/119 H 99 02/23/19 22:03 02/23/19 22:03 02/23/19 22:03 02/23/19 22:03 02/23/19 22:03 Doctor's Discharge - Discharge [facility]errals: [facility] - Follow up as needed
[2019-02-23] MEDS ORDERED: ASPIRIN 81 MG TABLET, CHEWABLE PO ONE (22:10)
[2019-02-23 22:34] LABS: ABSOLUTE BASOPHILS # (AUTO) 0.1 10^3/uL (0.0-0.2); ABSOLUTE EOSINOPHILS # (AUTO) 0.1 10^3/uL (0.0-0.6); ABSOLUTE LYMPHOCYTES (AUTO) 3.3 10^3/uL (0.5-4.7); ABSOLUTE MONOCYTES (AUTO) 0.4 10^3/uL (0.1-1.4); ABSOLUTE NEUT (AUTO) 4.1 10^3/uL (1.7-8.2); BASOPHILS % (AUTO) 1.4 % (0-2); EOSINOPHILS % (AUTO) 1.2 % (0-6); HEMATOCRIT 43.5 % (37.9-51.0); HEMOGLOBIN 14.1 g/dL (13.5-17.0); LYMPHOCYTES % (AUTO) 40.8 % (13-45); MEAN CORPUSCULAR HEMOGLOBIN 23.4 pg (27.0-33.4); MEAN CORPUSCULAR HGB CONC 32.5 g/dL (32.0-36.0); MEAN CORPUSCULAR VOLUME 72 fl (80-97); MONOCYTES % (AUTO) 4.9 % (3-13); PLATELET COUNT 205 10^3/uL (150-450); RED BLOOD COUNT 6.04 10^6/uL (4.35-5.55); RED CELL DISTRIBUTION WIDTH 14.1 % (11.5-14.0); SEGMENTED NEUTROPHILS % (AUTO) 51.7 % (42-78); TOTAL CELLS COUNTED % (AUTO) 100 %
[2019-02-23 22:56] LABS: ALBUMIN 4.6 g/dL (3.5-5.0); ALKALINE PHOSPHATASE 73 U/L (38-126); ANION GAP 11 (5-19); ASPARTATE AMINO TRANSFERASE 48 U/L (17-59); BILIRUBIN,DIRECT 0.1 mg/dL (0.0-0.4); BILIRUBIN,TOTAL 0.5 mg/dL (0.2-1.3); BLOOD UREA NITROGEN 13 mg/dL (7-20); CARBON DIOXIDE 27 mmol/L (22-30); CHLORIDE 102 mmol/L (98-107); GLUCOSE 128 mg/dL (75-110); POTASSIUM 3.7 mmol/L (3.6-5.0); TOTAL PROTEIN 8.2 g/dL (6.3-8.2)
[2019-02-23] MEDS ORDERED: CLONIDINE HCL 0.1 MG TABLET PO ONE (23:02)
--- NOTE | 2019-02-23 23:10 | RADIOLOGY REPORT (SQ) ---
EXAM DESCRIPTION: XR CHEST 2 VIEWS COMPLETED DATE/TME: 02/23/2019 22:08 CLINICAL HISTORY: 38 years, Male, left chest pressure COMPARISON: 09/07/2016 chest NUMBER OF VIEWS: 2 TECHNIQUE: Frontal and lateral views of the chest LIMITATIONS: None. FINDINGS: The heart size is normal. The lungs are clear. No pneumothorax IMPRESSION: Negative chest copyright 2010 [employer] [facility]- All Rights Reserved
--- NOTE | 2019-02-23 23:23 | ER Document Report ---
ED General - General Chief Complaint: Chest Pressure Stated Complaint: HIGH BLOOD PRESSURE/DULL CHEST PAIN Time Seen by Provider: 02/23/19 22:03 Primary Care Provider: [facility] [Primary [facility]] - Follow up as needed TRAVEL OUTSIDE OF THE [place] IN LAST 30 DAYS: No - HPI Notes: Mr. Bae is a 38-year-old male with a chief complaint of "blood pressure problems" and intermittent chest pain. This man is been followed by the [facility] medical clinic and in the past has had intermittent elevation of blood pressure. He says he is taken medication sporadically but is currently not on anything for this condition. He previously had a cholecystectomy last year. He is intermittently had some vague upper abdominal and mid chest discomfort since then. Today he had some sharp pains in his left shoulder aggravated by movement. He took his blood pressure at [facility] and found this to be elevated and thought he should come in to be seen. Patient denies any known history of cardiac disease. He denies any history of thromboembolic disease. He is a non-smoker. He denies abuse of alcohol or any use of illicit drugs. His family history is remarkable for some elderly relatives with heart disease. He has no known history of hyperlipidemia. Patient denies any trauma to the shoulder or chest area. He has recently taken a new job that involves a lot of prolonged walking and standing. He says his feet sometimes swell intermittently. He would like us to check this tonight also. HEART Score: HISTORY 0 ECG 1 AGE 3 RISK FACTORS 1 TROPONIN 0 TOTAL: 3 If HEART score is = 3 AND both tronponin measurments are normal, the 30 day risk of a major adverse cardiac event (all-cause mortality, myocardia infarction or need for coronary revscularization) is < 1% (Sensitivity 100%, NPV 100%). - Related Data Allergies/Adverse Reactions: No Known Allergies Allergy (Verified 01/29/19 23:47) Home Medications: no BP meds x 1 yr. Past Medical History - General Information source: Patient - Social History Smoking Status: Never Smoker Chew tobacco use (# tins/day): No Frequency of alcohol use: None Drug Abuse: None Family History: denies: CAD Patient has suicidal ideation: No Patient has homicidal ideation: No - Past Medical History Cardiac Medical History: Reports: Hx Hypertension Denies: Hx Hypercholesterolemia Renal/ Medical History: Denies: Hx Peritoneal Dialysis GI Medical History: Reports: Hx Gastroesophageal Reflux Disease Past Surgical History: Reports: Hx Cholecystectomy - 09/03/2016 - Immunizations Hx Diphtheria, Pertussis, Tetanus Vaccination: Yes Review of Systems - Review of Systems Notes: Constitutional: Negative for fever. HENT: Negative for sore throat. Eyes: Negative for visual changes. Cardiovascular: As per HPI. Respiratory: Negative for shortness of breath. Gastrointestinal: Negative for abdominal pain, vomiting or diarrhea. Genitourinary: Negative for dysuria. Musculoskeletal: Intermittent swelling of feet. Intermittent left shoulder discomfort with movement. Negative for back pain. Skin: Negative for rash. Neurological: Negative for headaches, weakness or numbness. 10 point ROS negative except as marked above and in HPI. Physical Exam - Vital signs Vitals: Temp Pulse Resp BP Pulse Ox 97.7 F 77 20 180/119 H 99 02/23/19 22:03 02/23/19 22:03 02/23/19 22:03 02/23/19 22:03 02/23/19 22:03 - Notes Notes: GENERAL: Well-developed well-nourished appearing in no acute distress. SKIN: Good turgor no rashes. HEAD: Normocephalic atraumatic. EYES: PERRLA. Conjunctivae and sclerae clear. EARS: CANALS AND TMS CLEAR. NOSE: CLEAR. MOUTH: Moist mucosa. Good dentition. No stridor or edema. No drooling. NECK: Supple. No masses or thyromegaly. No adenopathy. Carotids 2+ without bruits. No JVD. BACK: Symmetrical without tenderness. CHEST: Mild tenderness left anterior chest wall area. Respirations unlabored. Breath sounds clear and symmetrical. HEART: Regular rhythm. No murmur gallop or rub. ABDOMEN: Soft nontender without masses, organomegaly or rebound. Bowel sounds normally active. No bruits. GENITALIA: Deferred. EXTREMITIES: Trace bilateral pedal edema. No calf tenderness. Cap refill less than 1.5 seconds. Dorsalis pedis and posterior tibial pulses 3+ and symmetrical. NEUROLOGICAL: GCS 15. Alert and oriented x3. Normal gait. Fluent speech. Cranial nerves II through XII intact. Sensorimotor and cerebellar normal. Normal tone. Course - Re-evaluation Re-evalutation: 02/24/19 01:26 Patient was given clonidine orally and his blood pressure has gradually come down. His repeat reading at this time is 150/90. He has been asymptomatic since he is come to the ED. I spoke with him and his about the pain he is experienced and he describes this is fleeting lasting a few seconds at a time in the left shoulder, sharp in nature and reproducible with palpation and movement. He says as he thinks back he was carrying a heavy bag of some kind on the shoulder several days ago and may have injured this. The patient has nonetheless had reproducible elevated blood pressure readings on several occasions including tonight. He clearly has a positive family history for hypertension. He has no evidence of any major endorgan damage at this time and I believe his blood pressure needs to be treated. CBC chemistry profile troponin urinalysis and urine drug screen here were all negative. His EKG showed early repolarization changes and was unchanged from baseline. Chest x-ray was normal. Patient's heart score is 3. I believe he is stable for outpatient follow-up with his physician this week and I recommended that he discuss getting a treadmill test although I think his risk profile is very low. He may take Tylenol as needed. I am going to start him on Zestoretic as an outpatient. - Vital Signs Vital signs: Temp Pulse Resp BP Pulse Ox 97.7 F 77 20 154/94 H 99 02/23/19 22:03 02/23/19 22:03 02/23/19 22:03 02/24/19 01:16 02/23/19 22:03 - Laboratory Result Diagrams: 02/23/19 22:15 02/23/19 22:15 Laboratory results interpreted by me: 02/23/19 02/23/19 02/24/19 22:15 22:15 00:32 RBC 6.04 H MCV 72 L MCH 23.4 L RDW 14.1 H Glucose 128 H Urine Protein 30 H Urine Blood SMALL H - Diagnostic Test Radiology reviewed: Reports reviewed - EKG Interpretation by Me EKG shows normal: Sinus rhythm Rate: Normal Rhythm: NSR Additional EKG results interpreted by me: 02/23/19 23:24 Anterior chest lead changes V1 through V3 consistent with early repolarization unchanged from previous EKG which is dated 09/08/2016. Discharge - Discharge Clinical Impression: Essential hypertension, Musculoskeletal chest pain Condition: Stable Disposition: HOME, SELF-CARE Additional Instructions: Chest Wall Pain Your chest pain has been diagnosed as coming from the chest wall. This is often caused by straining the muscles or joints in the chest during physical activity, direct trauma, coughing, or vigorous vomiting. Persons with arthritis are especially prone to this type of pain, due to inflammation of the cartilage joints near the breast bone. Occasionally, no cause can be found. Rest from strenuous physical activity. This kind of chest pain is usually made worse by movement of the chest. Depending on the symptoms, we may pr escribe medicine for pain, muscle relaxation, and antiinflammatory effects. If the pain is new, and seems to be due to muscle strain, cold packs can help. Otherwise, apply gentle warmth to the painful area for 15 minutes every hour or two. You should contact the doctor immediately if things change. Further evaluation is needed if you develop a fever or cough, if the nature of the pain changes, or if you become short of breath.High Blood Pressure When your blood pressure was taken today it was elevated. Today's reading was . Pre-hypertension/Hypertension: The patient has been informed that they may have pre-hypertension or Hypertension based on a blood pressure reading in the emergency department. I recommend that the patient call the primary care provider listed on their discharge instructions or a physician of their choice this wee to arrange follow up for further evaluation of possible pre- hypertension or Hypertension. Sometimes, stress or illness causes a temporary elevation of your blood pressure. We suggest that you get your blood pressure measured three more times during the next few days to see if this is more than a temporary abnormality. If your blood pressure is greater than 150/90 on each occasion, you must have treatment. Some simple things you can do to help are: If you have blood pressure medicine but aren't using it regularly, start taking it again. Get some aerobic exercise for at least 20 minutes on a daily basis. (See your doctor before beginning a new exercise program.) Eat a low-fat diet. Lose excess weight. Avoid salty foods and avoid adding salt to any of the foods you eat. Avoid diet pills, decongestants, "energizing" herbs, and other medicines that elevate blood pressure. If left untreated, hypertension greatly enhances your risk for developing heart disease and strokes. Please don't ignore this problem. Return here as needed for new or worsening symptoms. [facility] and began prescribed medicine as instructed. Prescriptions: Lisinopril/Hydrochlorothiazide [Zestoretic 10-12.5 mg Tablet] 1 tab PO DAILY #30 tablet Referrals: [facility] [[facility]] - Follow up as needed
[2019-02-24 00:51] LABS: APPEARANCE,URINE CLEAR; BILIRUBIN,URINE NEGATIVE (NEGATIVE); COLOR,URINE YELLOW; GLUCOSE, URINE NEGATIVE (NEGATIVE); KETONES,URINE NEGATIVE (NEGATIVE); LEUKOCYTE ESTERASE,URINE NEGATIVE (NEGATIVE); NITRITE,URINE NEGATIVE (NEGATIVE); PROTEIN,URINE 30 mg/dL (NEGATIVE); URINE SPECIFIC GRAVITY 1.023; UROBILINOGEN,URINE NEGATIVE mg/dL (<2.0)
[2019-02-24 01:04] LABS: URINE AMPHETAMINES SCREEN NEGATIVE; URINE BARBITURATES SCREEN NEGATIVE; URINE BENZODIAZEPINES SCREEN NEGATIVE; URINE COCAINE SCREEN NEGATIVE; URINE MARIJUANA (THC) SCREEN NEGATIVE; URINE METHADONE SCREEN NEGATIVE; URINE PHENCYCLIDINE SCREEN NEGATIVE
[2019-02-24 01:25] VITALS: BP 154/94
--- NOTE | 2019-02-25 07:29 | EKG REPORT ---
SEVERITY:- BORDERLINE ECG - SINUS RHYTHM BORDERLINE T ABNORMALITIES, INFERIOR LEADS : Confirmed by: Jacob Amezcua MD 25-Feb-2019 07:29:00
== END 2019-02-24 01:58 | disposition home or self-care (01) ==
LOC: ER 21:42
DX: I10 Essential (primary) hypertension (principal); R07.89 Other chest pain; R19.8 Other specified symptoms and signs involving the digestive system and abdomen; M25.512 Pain in left shoulder; R60.0 Localized edema; Z90.49 Acquired absence of other specified parts of digestive tract; Z87.19 Personal history of other diseases of the digestive system
CPT/HCPCS: 36415; 71046; 80053; 80307; 81001; 83880; 84484; 85025; 93005; 93010; 99284